=== PATIENT | male | born 1940 | race Caucasian/White ===

== ENCOUNTER 2020-12-27 21:05 | Emergency (ER) | payer OTHER ==
[~2020-12-27] VITALS: Ht 172.7 cm; Wt 90.3 kg
[~2020-12-27 21:05] MED LIST: ASPI81EC PO; FISH1000 PO; HYDACE5 PO; METO25ER PO; MULVITMINF PO; NAPR550 PO; ONDA4 PO; PENVK500 PO; RAMI5; RAMI5 PO; SIMV10 PO
[2020-12-27 21:44] LABS: BASOPHILS ABSOLUTE AUTO 0.03 K/mm3 (0.00-0.23); BASOPHILS PERCENT AUTO 0 % (0-2); EOSINOPHILS ABSOLUTE AUTO 0.06 K/mm3 (0.00-0.68); EOSINOPHILS PERCENT AUTO 1 % (0-6); Hematocrit 44.6 % (37.0-53.0); Hemoglobin 15.6 g/dL (13.5-17.5); IMMATURE GRAN ABSOLUTE AUTO 0.02 K/mm3 (0.00-0.10); IMMATURE GRAN PERCENT AUTO 0 % (0-1); LYMPHOCYTES ABSOLUTE AUTO 4.32 K/mm3 (0.84-5.20); LYMPHOCYTES PERCENT AUTO 46 % (21-46); MONOCYTES ABSOLUTE AUTO 0.89 K/mm3 (0.16-1.47); MONOCYTES PERCENT AUTO 9 % (4-13); Mean Corpuscular HGB 32.8 pg (26.0-34.0); Mean Corpuscular Volume 94 fL (80-100); Mean Platelet Volume 9.6 fL (9.1-12.4); NEUTROPHILS ABSOLUTE AUTO 4.16 K/mm3 (1.96-9.15); NEUTROPHILS PERCENT AUTO 44 % (41-73); Platelet Count 248 K/mm3 (150-400); RDW Coefficient Variation 12.7 % (11.7-14.2); Red Blood Cell Count 4.75 M/mm3 (4.30-5.90); White Blood Cell Count 9.48 K/mm3 (4.00-11.30)
[2020-12-27 22:03] LABS: Alanine Aminotransfer (ALT/SGP 27 U/L (12-78); Albumin, Blood 3.9 g/dL (3.4-5.0); Albumin/Globulin Ratio 1.1 (0.8-1.8); Alk Phos 63 U/L (50-136); Anion Gap 7 mmol/L (6-16); Aspartate Aminotrans (AST/SGOT 20 U/L (12-37); Bilirubin, Total 0.4 mg/dL (0.1-1.0); Blood Urea Nitrogen 29 mg/dL (8-24); Bun/Creatinine Ratio 33.5 (12.0-20.0); CO2, Blood 28 mmol/L (21-32); Calcium, Blood 8.6 mg/dL (8.5-10.1); Chloride, Blood 103 mmol/L (98-108); Creatinine, Blood 0.87 mg/dL (0.60-1.20); Globulin, Blood 3.7 g/dL (2.2-4.0); Glomerular Filtration Rate >60 (60-); Glucose, Blood 131 mg/dL (70-99); Potassium, Blood 3.6 mmol/L (3.5-5.5); Sodium, Blood 138 mmol/L (136-145); Total Protein, Blood 7.6 g/dL (6.4-8.2); Troponin I <0.015 ng/mL (0.000-0.040)
[2020-12-27] MEDS ORDERED: HYDCHL25 PO (23:11)
[2020-12-27] MEDS ORDERED: METO50ER PO (23:12)
[2020-12-27] MEDS ORDERED: Ramipril10 MG PO (23:13)
[2020-12-28 01:45] LABS: Troponin I <0.015 ng/mL (0.000-0.040)
[2020-12-28 04:48] LABS: Source, Urine Clean Catch
[2020-12-28 04:53] LABS: Bilirubin, Urine Neg (Neg); Blood, Urine Neg (Neg); Glucose Qualitative, Urine Neg (Neg); Ketones, Urine Neg (Neg); Leukocyte Esterase, Urine Neg (Neg); Nitrite, Urine Neg (Neg); Protein, Urine 1+ (Neg); Urobilinogen, Urine NORM (Normal)
[2020-12-28 04:57] LABS: Appearance, Urine Clear (Clear); Color, Urine Yellow (P-Yellow)
[2020-12-28] MEDS ORDERED: MECL12.5 PO (04:59)
== END 2020-12-28 05:20 | disposition home or self-care (01) ==
LOC: ER 21:05
PROVIDERS: Emergency Medicine; Physician Assistant
DX: R11.2 Nausea with vomiting, unspecified (principal); R42 Dizziness and giddiness; I10 Essential (primary) hypertension; I25.10 Atherosclerotic heart disease of native coronary artery without angina pectoris; Z79.899 Other long term (current) drug therapy
CPT/HCPCS: 36415; 71046; 74177; 80053; 83690; 84484; 85025; 93005; 93010; 96361; 96374; 96375; 96376; 99284-25; A9270; J2405; J2550; J7120; Q9967

== ENCOUNTER → 2022-12-20 | Outpatient (CLI) | payer OTHER ==
[~2022-12-20] MED LIST changes: +HYDCHL25 PO; +MECL12.5 PO; +METO50ER PO; +Ramipril10 MG PO
[2022-12-20 12:32] LABS: BASOPHILS ABSOLUTE AUTO 0.04 K/mm3 (0.00-0.23); BASOPHILS PERCENT AUTO 1 % (0-2); EOSINOPHILS ABSOLUTE AUTO 0.06 K/mm3 (0.00-0.68); EOSINOPHILS PERCENT AUTO 1 % (0-6); IMMATURE GRAN ABSOLUTE AUTO 0.02 K/mm3 (0.00-0.10); IMMATURE GRAN PERCENT AUTO 0 % (0-1); LYMPHOCYTES PERCENT AUTO 32 % (21-46); MONOCYTES ABSOLUTE AUTO 0.59 K/mm3 (0.16-1.47); MONOCYTES PERCENT AUTO 9 % (4-13); Mean Corpuscular HGB 33.7 pg (26.0-34.0); Mean Corpuscular HGB Conc 36.4 g/dL (31.5-36.5); Mean Corpuscular Volume 93 fL (80-100); Mean Platelet Volume 9.8 fL (9.1-12.4); NEUTROPHILS ABSOLUTE AUTO 3.78 K/mm3 (1.96-9.15); NEUTROPHILS PERCENT AUTO 57 % (41-73); Platelet Count 216 K/mm3 (150-400); RDW Coefficient Variation 12.5 % (11.7-14.2); RDW Standard Deviation 42.8 fL (35.1-46.3); Red Blood Cell Count 4.75 M/mm3 (4.30-5.90); White Blood Cell Count 6.59 K/mm3 (4.00-11.30)
[2022-12-20 12:39] LABS: Bun/Creatinine Ratio 21.6 (12.0-20.0); Calcium, Blood 8.9 mg/dL (8.5-10.1); Creatinine, Blood 0.97 mg/dL (0.60-1.20); Potassium, Blood 4.3 mmol/L (3.5-5.5)
== END | disposition home or self-care (01) ==
LOC: LAB SHORT 12:29 → LAB 12:29
PROVIDERS: Physician Assistant
DX: M54.50 Low back pain, unspecified (principal)
CPT/HCPCS: 80048; 85025

== ENCOUNTER 2023-04-08 09:22 | Day surgery (SDC) | payer OTHER ==
[2023-04-08] VITALS (13 sets, daily range): BP systolic 110–148; BP diastolic 66–135
[~2023-04-08] VITALS: Ht 175.3 cm; Wt 95.7 kg
[~2023-04-08 09:22] MED LIST changes: +Aspir 8181 MG PO; +FISH OIL OMEGA 3 PO; +ICAPS AREDS2 S1 EACH PO
--- NOTE | 2023-04-08 12:12 | NUR ---
PATIENT ARRIVED BACK FROM THE [facility]. SBAR RECEIVED FROM [place] AND [place] GARCIA. PATIENT PLACED ON THE MONITOR AND RIGHT FEM ARTERY SITE, ANGIOSEAL. DR. AMADOR AT THE BEDSIDE. CALL LIGHT IN REACH. CALLED FOR . SIDE RAILS UP X TWO.
--- NOTE | 2023-04-08 12:30 | NUR ---
AT THE BEDSIDE. HELPING WITH MEAL.
--- NOTE | 2023-04-08 13:30 | NUR ---
PATIENT TOLERATING PO INTAKE WELL. VSS ON RA. R GROIN SITE C/D/I SOFT/NONTENDER, NO EVIDENCE OF BLEEDING.
--- NOTE | 2023-04-08 14:11 | NUR ---
PATIENT AMBULATING TO RESTROOM WITHOUT DIFFICULTY. R GROIN SITE C/D/I SOFT/NONTENDER, NO EVIDNECE OF HEMATOMA. VSS ON RA. PATIENT DENYING ANY PAIN.
--- NOTE | 2023-04-08 14:37 | NUR ---
FAMILY AT BEDSIDE, RFA GROIN SITE UNCHANGED. VVS.
--- NOTE | 2023-04-08 15:06 | NUR ---
DISCHARGE INSTRUCTIONS REVIEWED WITH PATIENT AND SPOUSE AT BEDSIDE. ALL QUESTIONS WERE ANSWERED. R GROIN SITE C/D/I SOFT/NONTENDER, NO EVIDENCE OF HEMATOMA. PATIENT AMBULATING WITHOUT DIFFICULTY. VSS ON RA.
--- NOTE | 2023-04-08 15:15 | NUR ---
PATIENT DISCHARGED HOME AT THIS TIME. PIV REMOVED WITHOUT DIFFICULTY, CATHETER INTACT. PATIENT WHEELED TO HOSPITAL ENTRANCE AND FAMILY ABLE TO PROVIDE TRANSPORTATION HOME. R GROIMN SITE C/D/I SOFT/NONTENDER, NO EVIDENCE OF HEMATOMA. VSS ON RA.
== END 2023-04-08 15:15 | disposition home or self-care (01) ==
LOC: MHTC 09:22
DX: I72.8 Aneurysm of other specified arteries (principal); I10 Essential (primary) hypertension; E78.5 Hyperlipidemia, unspecified; N40.0 Benign prostatic hyperplasia without lower urinary tract symptoms; Z88.0 Allergy status to penicillin; Z79.82 Long term (current) use of aspirin
CPT/HCPCS: 37242; 75726; 75774; 76937; 99152; 99153; C1760; C1769; C1887; C1894; J1644; J2250; J3010; J7030; J7050; Q9967